=== PATIENT | male | born 1970 | race Caucasian/White ===

== ENCOUNTER 2021-08-04 12:27 | Outpatient (CLI) | payer OTHER | END 2021-08-04 12:28 | disposition home or self-care (01) | LOC: CSHRAD 12:27 | PROVIDERS: ATTEND Chiropractor | DX: M54.50 Low back pain, unspecified (principal); G89.29 Other chronic pain | CPT/HCPCS: 72100 ==

== ENCOUNTER 2025-02-12 08:43 | Outpatient (CLI) | payer OTHER | END 2025-02-12 08:44 | disposition home or self-care (01) | LOC: CSHSLEEP 08:43 | DX: G47.33 Obstructive sleep apnea (adult) (pediatric) (principal); R09.89 Other specified symptoms and signs involving the circulatory and respiratory systems | CPT/HCPCS: 95800 ==

== ENCOUNTER 2025-05-14 07:13 | Outpatient (CLI) | payer OTHER | END 2025-05-14 07:14 | disposition home or self-care (01) | LOC: CSHCT 07:13 | DX: R63.4 Abnormal weight loss (principal); K86.2 Cyst of pancreas | CPT/HCPCS: 71250; 74178 ==